=== PATIENT | male | born 1945 | race Caucasian/White ===

== ENCOUNTER 2017-08-08 23:23 | Inpatient (IN) ==
[2017-08-08] MEDS ORDERED: ALBUTEROL 2.5 MG/3 ML NEB RESP TX STA (23:50)
[2017-08-08] MEDS ORDERED: FUROSEMIDE 40 MG/4 ML VIAL IV STA (23:50)
[2017-08-08] MEDS ORDERED: methylPREDNISolone SOD SUC 125 MG/2 ML VIAL IV ONE (23:50)
[2017-08-09 00:07] LABS: Basophils # 0.1 10*3/uL (0.0-0.2); Basophils % 0.5 % (0.0-0.8); Eosinophils # 0.1 10*3/uL (0.0-0.87); Eosinophils % 0.3 % (0.00-10.9); Hematocrit 36.2 VOL% (42.0-52.0); Hemoglobin 12.5 GM/DL (14.0-18.0); Lymphocytes # 1.6 10*3/uL (1.4-4.0); Lymphocytes % 10.7 % (21.2-54.2); Mean Corpuscular HGB Conc 34.5 GM/DL (32-36); Mean Corpuscular Hemoglobin 29 PG (27-34); Mean Corpuscular Volume 83.2 FL (87-102); Mean Platelet Volume 9.9 FL (9.6-12.0); Monocytes # 1.2 10*3/uL (0.11-0.8); Monocytes % 8.2 % (1.7-12.7); Neutrophils # 11.5 10*3/uL (1.4-7.4); Neutrophils % 76.3 % (38.7-73.9); Platelet Count 300 T/CUMM (130-400); Red Blood Count 4.35 MC/CUMM (3.8-5.5); Red Cell Distribution Width 14.5 % (9.3-17.3); White Blood Count 15.1 T/CUMM (4-12)
[2017-08-09 00:22] LABS: Calcium 8.7 MG/DL (8.5-10.1); Osmolality,Calculated 258.6 MOS/KG (273-304); Potassium 4.2 MMOL/L (3.5-5.1)
[2017-08-09 00:27] LABS: Lactic Acid 2.7 MMOL/L (0.4-2.0)
[2017-08-09 01:40] LABS: Band Neutrophils 1 % (0-10); Eosinophils 1 % (0-10); Lymphocytes 10 % (20-55); Segmented Neutrophils 82 % (50-85)
[2017-08-09 01:41] LABS: Platelet Estimate Normal; Polychromasia Few
[2017-08-09 01:42] LABS: Ovalocytes 1+; Total Cells Counted 100
[2017-08-09] MEDS ORDERED: ONDANSETRON 4 MG/2 ML VIAL IV PRN (01:57)
[2017-08-09] MEDS ORDERED: ACETAMINOPHEN 325 MG TABLET PO PRN (01:57)
[2017-08-09] MEDS: cefTRIAXone 1,000 MG in SYRINGE 1 EACH IV SCH (03:35)
[2017-08-09] MEDS: AZITHROMYCIN INJ 500 MG in SODIUM CHLORIDE 0.9% 250 ML IV SCH (03:35)
[2017-08-09] MEDS ORDERED: NITROGLYCERIN SL 0.4 MG TABLET SL PRN (07:18)
[2017-08-09] MEDS ORDERED: MORPHINE 4 MG/1 ML VIAL IV PRN (07:18)
[2017-08-09 09:07] LABS: CKMB % 1.9 %; Troponin I Only 0.695 NG/ML (0.00-0.045)
[2017-08-09] MEDS: PANTOPRAZOLE 40 MG TABLET PO SCH (09:55)
[2017-08-09] MEDS: DOCUSATE SODIUM 100 MG CAPSULE PO SCH ×2 (09:55→21:33)
[2017-08-09] MEDS: ASPIRIN 325 MG TABLET PO SCH (09:55)
[2017-08-09] MEDS: FUROSEMIDE 40 MG/4 ML VIAL IV SCH ×2 (09:55→16:57)
[2017-08-09] MEDS: INSULIN LISPRO 100 UNIT/ML SUBCUT SCH ×2 (12:47→16:57)
[2017-08-09] MEDS: ALBUTEROL/IPRATROPIUM 3 ML NEB RESP TX PRN (15:15)
[2017-08-09] MEDS ORDERED: MAGNESIUM SULF RIDER 4 GM in PREMIX 1 EACH IV PRN (18:59)
[2017-08-09] MEDS: SODIUM CHLORIDE 0.9% 1,000 ML IV SCH (20:38)
[2017-08-09] MEDS: ENOXAPARIN 100 MG/ML SYRINGE SUBCUT SCH (20:50)
[2017-08-09] MEDS ORDERED: DEXTROSE 50% 25 GM/50 ML VIAL IV PRN (20:52)
[2017-08-09] MEDS ORDERED: GLUCAGON 1 MG VIAL IM PRN (20:52)
[2017-08-09] MEDS: MAGNESIUM SULF RIDER 2 GM in PREMIX 1 EACH IV PRN ×2 (20:55→22:21)
[2017-08-09] MEDS ORDERED: CARVEDILOL 3.125 MG TABLET PO SCH (21:00)
[2017-08-09] MEDS: ZALEPLON 5 MG CAPSULE PO SCH (21:33)
[2017-08-09] MEDS: INSULIN GLARGINE 100 UNIT/ML SUBCUT SCH (21:33)
[2017-08-09 23:19] LABS: Troponin I Only 3.89 NG/ML (0.00-0.045)
[2017-08-10] MEDS: INSULIN LISPRO 100 UNIT/ML SUBCUT SCH ×5 (00:36→23:36)
[2017-08-10] MEDS: cefTRIAXone 1,000 MG in SYRINGE 1 EACH IV SCH (03:27)
[2017-08-10] MEDS: AZITHROMYCIN INJ 500 MG in SODIUM CHLORIDE 0.9% 250 ML IV SCH (03:27)
[2017-08-10 04:40] LABS: Basophils % 0.1 % (0.0-0.8); Eosinophils % 0.1 % (0.00-10.9); Hematocrit 27.3 VOL% (42.0-52.0); Hemoglobin 9.3 GM/DL (14.0-18.0); Immature Granulocytes % 1.6 %; Immature Granulocytes Absolute 0.21 #; Lymphocytes # 0.9 10*3/uL (1.4-4.0); Lymphocytes % 6.5 % (21.2-54.2); Mean Corpuscular HGB Conc 34.1 GM/DL (32-36); Mean Corpuscular Hemoglobin 29 PG (27-34); Mean Corpuscular Volume 85.3 FL (87-102); Mean Platelet Volume 9.6 FL (9.6-12.0); Monocytes # 1.2 10*3/uL (0.11-0.8); Neutrophils # 10.9 10*3/uL (1.4-7.4); Neutrophils % 82.7 % (38.7-73.9); Platelet Count 207 T/CUMM (130-400); Red Cell Distribution Width 14.9 % (9.3-17.3); White Blood Count 13.2 T/CUMM (4-12)
[2017-08-10 05:07] LABS: Osmolality,Calculated 273.1 MOS/KG (273-304); Potassium 3.5 MMOL/L (3.5-5.1)
[2017-08-10 05:11] LABS: CKMB % 5.4 %
[2017-08-10 05:13] LABS: Troponin I Only 6.28 NG/ML (0.00-0.045)
[2017-08-10] MEDS: ENOXAPARIN 100 MG/ML SYRINGE SUBCUT SCH ×2 (06:35→21:04)
[2017-08-10 07:26] LABS: CKMB % 4.9 %
[2017-08-10 07:28] LABS: Troponin I Only 8.64 NG/ML (0.00-0.045)
[2017-08-10] MEDS: sitaGLIPtin 100 MG TABLET PO SCH (08:53)
[2017-08-10] MEDS: ASPIRIN 325 MG TABLET PO SCH (08:53)
[2017-08-10] MEDS: DOCUSATE SODIUM 100 MG CAPSULE PO SCH ×2 (08:53→21:04)
[2017-08-10] MEDS: VALSARTAN 80 MG TABLET PO SCH (08:53)
[2017-08-10] MEDS: ATORVASTATIN 20 MG TABLET PO SCH (08:54)
[2017-08-10] MEDS: FUROSEMIDE 40 MG/4 ML VIAL IV SCH ×2 (08:54→21:05)
[2017-08-10] MEDS: glipiZIDE 5 MG TABLET PO SCH (08:54)
[2017-08-10] MEDS: PANTOPRAZOLE 40 MG TABLET PO SCH (08:54)
[2017-08-10] MEDS: SPIRONOLACTONE 25 MG TABLET PO SCH (08:54)
[2017-08-10] MEDS: SODIUM CHLORIDE 0.9% 1,000 ML IV SCH (08:55)
[2017-08-10] MEDS: CLOPIDOGREL 75 MG TABLET PO SCH (08:58)
[2017-08-10] MEDS: MULTIVITAMIN (CENTRUM) TABLET PO SCH (08:58)
[2017-08-10] MEDS ORDERED: FLAXSEED OIL 1000 MG PO SCH (09:00)
[2017-08-10] MEDS ORDERED: QUINAPRIL 5 MG TABLET PO SCH (09:00)
[2017-08-10] MEDS ORDERED: amLODIPine 10 MG TABLET PO SCH (09:00)
[2017-08-10] MEDS ORDERED: METOPROLOL SUCCINATE XL 50 MG TABLET PO SCH (09:30)
[2017-08-10 12:01] LABS: CKMB % 4.1 %
[2017-08-10 12:02] LABS: Troponin I Only 6.49 NG/ML (0.00-0.045)
[2017-08-10] MEDS ORDERED: POTASSIUM CHLORIDE 20 MEQ TABLET PO ONE (14:44)
[2017-08-10 15:06] LABS: Basophils % 0.2 % (0.0-0.8); Eosinophils # 0.1 10*3/uL (0.0-0.87); Eosinophils % 0.3 % (0.00-10.9); Hematocrit 35.7 VOL% (42.0-52.0); Immature Granulocytes % 1.6 %; Immature Granulocytes Absolute 0.28 #; Lymphocytes # 1.2 10*3/uL (1.4-4.0); Lymphocytes % 6.8 % (21.2-54.2); Mean Corpuscular HGB Conc 33.6 GM/DL (32-36); Mean Corpuscular Hemoglobin 29 PG (27-34); Mean Platelet Volume 9.8 FL (9.6-12.0); Monocytes # 1.5 10*3/uL (0.11-0.8); Monocytes % 8.6 % (1.7-12.7); Neutrophils # 14.4 10*3/uL (1.4-7.4); Neutrophils % 82.5 % (38.7-73.9); Platelet Count 305 T/CUMM (130-400); Red Cell Distribution Width 15.2 % (9.3-17.3); White Blood Count 17.5 T/CUMM (4-12)
[2017-08-10] MEDS: ALBUTEROL/IPRATROPIUM 3 ML NEB RESP TX PRN (15:11)
[2017-08-10 15:39] LABS: % Iron Saturation 9.7 % (18-50); Ferritin 91.9 ng/ml (26-388)
[2017-08-10 15:47] LABS: Folate 21.9 NG/ML (5.4-24.0)
[2017-08-10] MEDS: ALBUTEROL/IPRATROPIUM 3 ML NEB RESP TX SCH ×2 (17:08→19:16)
[2017-08-10] MEDS ORDERED: FUROSEMIDE 100 MG/10 ML VIAL ONE (20:55)
[2017-08-10] MEDS ORDERED: POTASSIUM CHLORIDE 20 MEQ TABLET PO SCH (21:00)
[2017-08-10] MEDS: INSULIN GLARGINE 100 UNIT/ML SUBCUT SCH (21:02)
[2017-08-10] MEDS: METOPROLOL TARTRATE 50 MG TABLET PO SCH (21:04)
[2017-08-10] MEDS: ZALEPLON 5 MG CAPSULE PO SCH (21:04)
[2017-08-11] MEDS: ALBUTEROL/IPRATROPIUM 3 ML NEB RESP TX SCH ×4 (00:03→19:23)
[2017-08-11] MEDS: cefTRIAXone 1,000 MG in SYRINGE 1 EACH IV SCH (04:00)
[2017-08-11 04:50] LABS: Basophils % 0.1 % (0.0-0.8); Eosinophils # 0.3 10*3/uL (0.0-0.87); Eosinophils % 2.3 % (0.00-10.9); Hematocrit 32.7 VOL% (42.0-52.0); Hemoglobin 11.1 GM/DL (14.0-18.0); Immature Granulocytes % 1.5 %; Immature Granulocytes Absolute 0.21 #; Lymphocytes # 1.2 10*3/uL (1.4-4.0); Lymphocytes % 8.8 % (21.2-54.2); Mean Corpuscular HGB Conc 33.9 GM/DL (32-36); Mean Corpuscular Hemoglobin 29 PG (27-34); Mean Corpuscular Volume 85.4 FL (87-102); Mean Platelet Volume 9.7 FL (9.6-12.0); Monocytes # 1.5 10*3/uL (0.11-0.8); Monocytes % 10.7 % (1.7-12.7); Neutrophils # 10.6 10*3/uL (1.4-7.4); Neutrophils % 76.6 % (38.7-73.9); Platelet Count 259 T/CUMM (130-400); Red Blood Count 3.83 MC/CUMM (3.8-5.5); Red Cell Distribution Width 15.3 % (9.3-17.3); White Blood Count 13.9 T/CUMM (4-12)
[2017-08-11 05:17] LABS: Calcium 8.3 MG/DL (8.5-10.1); Osmolality,Calculated 272.2 MOS/KG (273-304); Potassium 4.8 MMOL/L (3.5-5.1)
[2017-08-11] MEDS: INSULIN LISPRO 100 UNIT/ML SUBCUT SCH ×3 (05:22→18:39)
[2017-08-11] MEDS ORDERED: FUROSEMIDE 20 MG/2 ML VIAL ONE (08:11)
[2017-08-11] MEDS: FUROSEMIDE 40 MG/4 ML VIAL IV SCH ×2 (08:19→15:50)
[2017-08-11] MEDS ORDERED: MAGNESIUM SULF RIDER 2 GM in PREMIX 1 EACH IV PRN (08:19)
[2017-08-11] MEDS ORDERED: POTASSIUM CHLORIDE RIDER 10 MEQ in PREMIX 1 EACH IV PRN (08:19)
[2017-08-11] MEDS: VALSARTAN 80 MG TABLET PO SCH (08:20)
[2017-08-11] MEDS: SPIRONOLACTONE 25 MG TABLET PO SCH (08:21)
[2017-08-11] MEDS: ATORVASTATIN 20 MG TABLET PO SCH (08:21)
[2017-08-11] MEDS: METOPROLOL TARTRATE 50 MG TABLET PO SCH ×2 (08:21→21:34)
[2017-08-11] MEDS: ENOXAPARIN 40 MG/0.4 ML SYRINGE SUBCUT SCH (08:21)
[2017-08-11] MEDS: ASPIRIN 325 MG TABLET PO SCH (08:21)
[2017-08-11] MEDS: PANTOPRAZOLE 40 MG TABLET PO SCH (08:21)
[2017-08-11] MEDS: MULTIVITAMIN (CENTRUM) TABLET PO SCH (08:21)
[2017-08-11] MEDS: glipiZIDE 5 MG TABLET PO SCH (08:21)
[2017-08-11] MEDS: sitaGLIPtin 100 MG TABLET PO SCH (08:21)
[2017-08-11] MEDS: CLOPIDOGREL 75 MG TABLET PO SCH (08:21)
[2017-08-11] MEDS: DOCUSATE SODIUM 100 MG CAPSULE PO SCH ×2 (08:21→21:34)
[2017-08-11] MEDS ORDERED: CYANOCOBALAMIN 1000 MCG/1 ML VIAL IM SCH (09:00)
[2017-08-11] MEDS: ZALEPLON 5 MG CAPSULE PO SCH (21:35)
[2017-08-11] MEDS: INSULIN GLARGINE 100 UNIT/ML SUBCUT SCH (21:35)
[2017-08-12] MEDS: INSULIN LISPRO 100 UNIT/ML SUBCUT SCH ×4 (00:06→18:57)
[2017-08-12] MEDS: ALBUTEROL/IPRATROPIUM 3 ML NEB RESP TX SCH ×4 (02:03→19:21)
[2017-08-12] MEDS: cefTRIAXone 1,000 MG in SYRINGE 1 EACH IV SCH (03:51)
[2017-08-12 05:15] LABS: Basophils % 0.2 % (0.0-0.8); Eosinophils # 0.4 10*3/uL (0.0-0.87); Eosinophils % 3.6 % (0.00-10.9); Hematocrit 32.4 VOL% (42.0-52.0); Immature Granulocytes % 1.2 %; Immature Granulocytes Absolute 0.14 #; Lymphocytes % 8.5 % (21.2-54.2); Mean Corpuscular Hemoglobin 29 PG (27-34); Mean Platelet Volume 9.8 FL (9.6-12.0); Monocytes # 1.3 10*3/uL (0.11-0.8); Monocytes % 10.8 % (1.7-12.7); NRBC # 0.02 10*3/uL; Neutrophils % 75.7 % (38.7-73.9); Platelet Count 261 T/CUMM (130-400); Red Blood Count 3.81 MC/CUMM (3.8-5.5); Red Cell Distribution Width 15.3 % (9.3-17.3); White Blood Count 11.8 T/CUMM (4-12)
[2017-08-12 05:23] LABS: PT Patient Result 10.6 SECS
[2017-08-12 05:52] LABS: Calcium 8.2 MG/DL (8.5-10.1); Potassium 4.2 MMOL/L (3.5-5.1)
[2017-08-12] MEDS ORDERED: HEPARIN/NACL 0.9% 2 UNITS/ML 1,000 ML IV ONE (06:53)
[2017-08-12] MEDS: VALSARTAN 80 MG TABLET PO SCH (07:40)
[2017-08-12] MEDS: ASPIRIN 325 MG TABLET PO SCH (07:40)
[2017-08-12] MEDS: METOPROLOL TARTRATE 50 MG TABLET PO SCH ×2 (07:40→21:22)
[2017-08-12] MEDS: CLOPIDOGREL 75 MG TABLET PO SCH (07:40)
[2017-08-12] MEDS: FUROSEMIDE 40 MG/4 ML VIAL IV SCH ×3 (07:43→16:03)
[2017-08-12] MEDS ORDERED: LIDOCAINE 1%/EPI INJ 20 ML VIAL ONE (07:58)
[2017-08-12] MEDS: DOCUSATE SODIUM 100 MG CAPSULE PO SCH ×3 (08:02→21:21)
[2017-08-12] MEDS: glipiZIDE 5 MG TABLET PO SCH ×2 (08:02→09:34)
[2017-08-12] MEDS: ATORVASTATIN 20 MG TABLET PO SCH ×2 (08:02→09:34)
[2017-08-12] MEDS: sitaGLIPtin 100 MG TABLET PO SCH ×2 (08:02→09:34)
[2017-08-12] MEDS: MULTIVITAMIN (CENTRUM) TABLET PO SCH ×2 (08:02→09:34)
[2017-08-12] MEDS: SPIRONOLACTONE 25 MG TABLET PO SCH ×2 (08:02→09:34)
[2017-08-12] MEDS: PANTOPRAZOLE 40 MG TABLET PO SCH ×2 (08:03→09:34)
[2017-08-12] MEDS ORDERED: MIDAZOLAM 2 MG/2 ML VIAL ONE (08:14)
[2017-08-12] MEDS ORDERED: fentaNYL 100 MCG/2 ML VIAL ONE (08:14)
[2017-08-12] MEDS ORDERED: DIAZEPAM 5 MG TABLET PO ONE (08:19)
[2017-08-12] MEDS ORDERED: diphenhydrAMINE CAP 25 MG CAPSULE PO ONE (08:19)
[2017-08-12] MEDS ORDERED: SODIUM CHLORIDE 0.9% 1,000 ML IV SCH (09:00)
[2017-08-12] MEDS: ENOXAPARIN 40 MG/0.4 ML SYRINGE SUBCUT SCH (09:42)
[2017-08-12] MEDS ORDERED: MAGNESIUM SULF RIDER 4 GM in PREMIX 1 EACH IV PRN (11:12)
[2017-08-12] MEDS ORDERED: MAGNESIUM SULF RIDER 2 GM in PREMIX 1 EACH IV PRN (11:12)
[2017-08-12] MEDS: ZALEPLON 5 MG CAPSULE PO SCH (21:21)
[2017-08-12] MEDS: INSULIN GLARGINE 100 UNIT/ML SUBCUT SCH (21:22)
[2017-08-13] MEDS: INSULIN LISPRO 100 UNIT/ML SUBCUT SCH ×5 (00:01→20:11)
[2017-08-13] MEDS: ALBUTEROL/IPRATROPIUM 3 ML NEB RESP TX SCH ×4 (00:04→19:06)
[2017-08-13] MEDS: cefTRIAXone 1,000 MG in SYRINGE 1 EACH IV SCH (03:08)
[2017-08-13 06:45] LABS: Basophils % 0.2 % (0.0-0.8); Eosinophils # 0.5 10*3/uL (0.0-0.87); Eosinophils % 3.9 % (0.00-10.9); Hematocrit 34.9 VOL% (42.0-52.0); Hemoglobin 11.6 GM/DL (14.0-18.0); Immature Granulocytes % 1.1 %; Immature Granulocytes Absolute 0.15 #; Lymphocytes # 1.2 10*3/uL (1.4-4.0); Lymphocytes % 8.9 % (21.2-54.2); Mean Corpuscular HGB Conc 33.2 GM/DL (32-36); Mean Corpuscular Hemoglobin 29 PG (27-34); Mean Corpuscular Volume 86.8 FL (87-102); Mean Platelet Volume 9.7 FL (9.6-12.0); Monocytes # 1.2 10*3/uL (0.11-0.8); Monocytes % 8.4 % (1.7-12.7); Neutrophils # 10.6 10*3/uL (1.4-7.4); Neutrophils % 77.5 % (38.7-73.9); Platelet Count 272 T/CUMM (130-400); Red Blood Count 4.02 MC/CUMM (3.8-5.5); Red Cell Distribution Width 14.9 % (9.3-17.3); White Blood Count 13.7 T/CUMM (4-12)
[2017-08-13 07:19] LABS: Calcium 8.4 MG/DL (8.5-10.1); Osmolality,Calculated 275.1 MOS/KG (273-304); Potassium 4.5 MMOL/L (3.5-5.1); Risk Ratio 2.22; VLDL CHOLESTEROL 8.2 MG/DL
[2017-08-13] MEDS: DOCUSATE SODIUM 100 MG CAPSULE PO SCH ×2 (09:04→20:11)
[2017-08-13] MEDS: ASPIRIN 325 MG TABLET PO SCH (09:04)
[2017-08-13] MEDS: sitaGLIPtin 100 MG TABLET PO SCH (09:04)
[2017-08-13] MEDS: ATORVASTATIN 20 MG TABLET PO SCH (09:04)
[2017-08-13] MEDS: METOPROLOL TARTRATE 50 MG TABLET PO SCH ×2 (09:04→20:11)
[2017-08-13] MEDS: ISOSORBIDE MONONITRATE 30 MG TABLET PO SCH (09:05)
[2017-08-13] MEDS: FUROSEMIDE 40 MG/4 ML VIAL IV SCH ×2 (09:05→18:10)
[2017-08-13] MEDS: ENOXAPARIN 40 MG/0.4 ML SYRINGE SUBCUT SCH (09:05)
[2017-08-13] MEDS: PANTOPRAZOLE 40 MG TABLET PO SCH (09:05)
[2017-08-13] MEDS: SPIRONOLACTONE 25 MG TABLET PO SCH (09:05)
[2017-08-13] MEDS: glipiZIDE 5 MG TABLET PO SCH (09:05)
[2017-08-13] MEDS: MULTIVITAMIN (CENTRUM) TABLET PO SCH (09:05)
[2017-08-13] MEDS: VALSARTAN 80 MG TABLET PO SCH ×2 (09:12→20:11)
[2017-08-13] MEDS ORDERED: GLUCAGON 1 MG VIAL IM PRN (12:41)
[2017-08-13] MEDS ORDERED: DEXTROSE 50% 25 GM/50 ML VIAL IV PRN (12:41)
[2017-08-13] MEDS ORDERED: SODIUM CHLORIDE 0.9% 1,000 ML IV SCH (13:00)
[2017-08-13] MEDS: ZALEPLON 5 MG CAPSULE PO SCH (20:11)
[2017-08-13] MEDS: INSULIN GLARGINE 100 UNIT/ML SUBCUT SCH (20:12)
[2017-08-13] MEDS: CHLORHEXIDINE 0.12% ORAL RINSE 60 ML BOTTLE SWISH/SPIT SCH (20:19)
[2017-08-14] MEDS: ALBUTEROL/IPRATROPIUM 3 ML NEB RESP TX SCH ×4 (01:55→20:07)
[2017-08-14] MEDS: cefTRIAXone 1,000 MG in SYRINGE 1 EACH IV SCH (02:11)
[2017-08-14 03:28] LABS: ABG Base Excess 7.2 MMOL/L (-2.5-2.5); ABG HCO3 31.4 MMOL/L (20-26); ABG Oxygen Saturation 95.1 % (95-100); ABG PH 7.481 (7.35-7.45); ABG PO2 79.9 MM HG (80-95); ABG TCO2 32.7 MMOL/L (23-27); Allen Test Positive
[2017-08-14 05:53] LABS: Basophils % 0.2 % (0.0-0.8); Eosinophils # 0.4 10*3/uL (0.0-0.87); Eosinophils % 3.4 % (0.00-10.9); Hematocrit 32.2 VOL% (42.0-52.0); Immature Granulocytes % 0.9 %; Immature Granulocytes Absolute 0.11 #; Lymphocytes # 1.1 10*3/uL (1.4-4.0); Lymphocytes % 9.2 % (21.2-54.2); Mean Corpuscular HGB Conc 34.2 GM/DL (32-36); Mean Corpuscular Hemoglobin 29 PG (27-34); Mean Corpuscular Volume 84.5 FL (87-102); Mean Platelet Volume 9.6 FL (9.6-12.0); Monocytes % 8.5 % (1.7-12.7); Neutrophils # 9.5 10*3/uL (1.4-7.4); Neutrophils % 77.8 % (38.7-73.9); Platelet Count 245 T/CUMM (130-400); Red Blood Count 3.81 MC/CUMM (3.8-5.5); Red Cell Distribution Width 14.7 % (9.3-17.3); White Blood Count 12.2 T/CUMM (4-12)
[2017-08-14 06:27] LABS: Calcium 8.6 MG/DL (8.5-10.1); Osmolality,Calculated 271.4 MOS/KG (273-304)
[2017-08-14] MEDS ORDERED: CEFUROXIME INJ 1,500 MG in SODIUM CHLORIDE 0.9% 100 ML IV ONE (06:30)
[2017-08-14] MEDS: MAGNESIUM SULF RIDER 2 GM in PREMIX 1 EACH IV PRN (06:33)
[2017-08-14 06:56] LABS: Albumin 2.7 G/DL (3.4-5.0); Bilirubin,Total 1.8 MG/DL (0.2-1.0); Calcium 8.7 MG/DL (8.5-10.1); Osmolality,Calculated 272.4 MOS/KG (273-304); Total Protein 5.7 G/DL (6.4-8.3)
[2017-08-14] MEDS: INSULIN LISPRO 100 UNIT/ML SUBCUT SCH ×4 (07:39→21:37)
[2017-08-14] MEDS: FUROSEMIDE 40 MG/4 ML VIAL IV SCH ×2 (08:21→16:21)
[2017-08-14] MEDS: DOCUSATE SODIUM 100 MG CAPSULE PO SCH ×2 (09:44→21:37)
[2017-08-14] MEDS: sitaGLIPtin 100 MG TABLET PO SCH (09:44)
[2017-08-14] MEDS: SPIRONOLACTONE 25 MG TABLET PO SCH (09:44)
[2017-08-14] MEDS: MULTIVITAMIN (CENTRUM) TABLET PO SCH (09:44)
[2017-08-14] MEDS: ATORVASTATIN 20 MG TABLET PO SCH (09:44)
[2017-08-14] MEDS: PANTOPRAZOLE 40 MG TABLET PO SCH (09:45)
[2017-08-14] MEDS: METOPROLOL TARTRATE 50 MG TABLET PO SCH ×2 (09:45→21:37)
[2017-08-14] MEDS: ISOSORBIDE MONONITRATE 30 MG TABLET PO SCH (09:45)
[2017-08-14] MEDS: ASPIRIN 325 MG TABLET PO SCH (09:45)
[2017-08-14] MEDS: VALSARTAN 80 MG TABLET PO SCH ×2 (09:45→21:37)
[2017-08-14] MEDS: glipiZIDE 5 MG TABLET PO SCH (09:45)
[2017-08-14] MEDS: CHLORHEXIDINE 0.12% ORAL RINSE 60 ML BOTTLE SWISH/SPIT SCH ×2 (09:46→21:38)
[2017-08-14] MEDS: ENOXAPARIN 40 MG/0.4 ML SYRINGE SUBCUT SCH (09:50)
[2017-08-14] MEDS: CHLORHEXIDINE 4% SOLN 118 ML BOTTLE TOP SCH ×2 (15:25→21:38)
[2017-08-14] MEDS: ZALEPLON 5 MG CAPSULE PO SCH (21:37)
[2017-08-14] MEDS: INSULIN GLARGINE 100 UNIT/ML SUBCUT SCH (21:38)
[2017-08-15] MEDS: ALBUTEROL/IPRATROPIUM 3 ML NEB RESP TX SCH ×3 (00:43→13:59)
[2017-08-15] MEDS: cefTRIAXone 1,000 MG in SYRINGE 1 EACH IV SCH (03:44)
[2017-08-15] MEDS ORDERED: PAPAVERINE 60 MG/2 ML VIAL ONE (05:19)
[2017-08-15] MEDS ORDERED: VANCOMYCIN 1,000 MG VIAL ONE (05:19)
[2017-08-15] MEDS ORDERED: DIAZEPAM 5 MG TABLET PO ONE (05:30)
[2017-08-15] MEDS ORDERED: FAMOTIDINE 20 MG TABLET PO ONE (05:30)
[2017-08-15 05:42] LABS: Basophils % 0.2 % (0.0-0.8); Eosinophils # 0.5 10*3/uL (0.0-0.87); Eosinophils % 4.3 % (0.00-10.9); Hematocrit 31.8 VOL% (42.0-52.0); Hemoglobin 10.2 GM/DL (14.0-18.0); Immature Granulocytes % 0.9 %; Lymphocytes % 9.6 % (21.2-54.2); Mean Corpuscular HGB Conc 32.1 GM/DL (32-36); Mean Corpuscular Hemoglobin 28 PG (27-34); Mean Corpuscular Volume 87.4 FL (87-102); Mean Platelet Volume 9.9 FL (9.6-12.0); Monocytes % 9.1 % (1.7-12.7); Neutrophils # 8.2 10*3/uL (1.4-7.4); Neutrophils % 75.9 % (38.7-73.9); Platelet Count 246 T/CUMM (130-400); Red Blood Count 3.64 MC/CUMM (3.8-5.5); Red Cell Distribution Width 14.6 % (9.3-17.3); White Blood Count 10.9 T/CUMM (4-12)
[2017-08-15] MEDS ORDERED: SUFentanil 250 MCG/5 ML AMP ONE (08:56)
[2017-08-15] MEDS ORDERED: TRANEXAMIC ACID 1,000 MG/10 ML VIAL ONE ×2 (08:57→15:53)
[2017-08-15] MEDS ORDERED: MIDAZOLAM 10 MG/2 ML VIAL ONE (08:57)
[2017-08-15] MEDS ORDERED: VECURONIUM 10 MG VIAL IV ONE (09:06)
[2017-08-15] MEDS ORDERED: CALCIUM CHLORIDE 1,000 MG/10 ML VIAL IV ONE ×2 (09:06→15:53)
[2017-08-15] MEDS: INSULIN LISPRO 100 UNIT/ML SUBCUT SCH ×2 (09:10→13:59)
[2017-08-15] MEDS: glipiZIDE 5 MG TABLET PO SCH (09:11)
[2017-08-15] MEDS: CHLORHEXIDINE 4% SOLN 118 ML BOTTLE TOP SCH (09:11)
[2017-08-15] MEDS: SPIRONOLACTONE 25 MG TABLET PO SCH (09:12)
[2017-08-15] MEDS: ENOXAPARIN 40 MG/0.4 ML SYRINGE SUBCUT SCH (09:12)
[2017-08-15] MEDS: sitaGLIPtin 100 MG TABLET PO SCH (09:12)
[2017-08-15] MEDS: FUROSEMIDE 40 MG/4 ML VIAL IV SCH (09:13)
[2017-08-15] MEDS: ASPIRIN 325 MG TABLET PO SCH (09:27)
[2017-08-15] MEDS: VALSARTAN 80 MG TABLET PO SCH (09:27)
[2017-08-15] MEDS: METOPROLOL TARTRATE 50 MG TABLET PO SCH (09:27)
[2017-08-15] MEDS: DOCUSATE SODIUM 100 MG CAPSULE PO SCH (09:28)
[2017-08-15] MEDS: PANTOPRAZOLE 40 MG TABLET PO SCH (09:28)
[2017-08-15] MEDS: MULTIVITAMIN (CENTRUM) TABLET PO SCH (09:28)
[2017-08-15] MEDS: ATORVASTATIN 20 MG TABLET PO SCH (09:28)
[2017-08-15] MEDS: ISOSORBIDE MONONITRATE 30 MG TABLET PO SCH (09:28)
[2017-08-15] MEDS: CHLORHEXIDINE 0.12% ORAL RINSE 60 ML BOTTLE SWISH/SPIT SCH ×2 (09:31→21:13)
[2017-08-15] MEDS ORDERED: SODIUM CHLORIDE 0.9% 1,000 ML IV SCH (10:30)
[2017-08-15] MEDS ORDERED: NITROPRUSSIDE 50 MG/2 ML VIAL ONE (11:08)
[2017-08-15] MEDS ORDERED: PHENYLEPHRINE DRIP 40 MG/250 ML PREMIX IV ONE (11:08)
[2017-08-15] MEDS ORDERED: ALBUMIN 5% 12.5 GM/250 ML VIAL IV ONE ×3 (11:09→15:53)
[2017-08-15] MEDS ORDERED: CALCIUM CHLORIDE 1,000 MG/10 ML SYRINGE IV ONE (11:09)
[2017-08-15] MEDS ORDERED: SODIUM BICARBONATE 50 MEQ/50 ML SYRINGE IV ONE ×2 (11:09→14:15)
[2017-08-15] MEDS ORDERED: POTASSIUM CHLORIDE RIDER 100 ML IV ONE (11:10)
[2017-08-15] MEDS ORDERED: CEFUROXIME 1,500 MG VIAL ONE (11:29)
[2017-08-15 11:34] LABS: ABG Base Excess 4.4 MMOL/L (-2.5-2.5); ABG HCO3 28.5 MMOL/L (20-26); ABG Oxygen Saturation 99.3 % (95-100); ABG PCO2 40.4 MM HG (35-48); ABG PH 7.466 (7.35-7.45); ABG PO2 465.7 MM HG (80-95); ABG TCO2 29.7 MMOL/L (23-27); Glucose Heart Surgery 128 MG/DL (74-106); Hemoglobin Heart Surgery 10.4 G/DL (14.0-18.0); PCO2 Patient Temp Arterial 40.4 MMHG; PH Patient Temp Arterial 7.466; PO2 Patient Temp Arterial 465.7 MM HG; Patient Temperature 37 CELCIUS; Potassium Heart/CVR 3.4 MMOL/L (3.5-5.1); Sodium Heart/CVR 129 MMOL/L (135-145)
[2017-08-15 12:44] LABS: Apearance,Urine CLEAR (Clear); Bilirubin,Urine Negative (Negative); Blood, Urine Negative (Negative); Glucose,Urine (UA) Negative (Negative); Ketones,Urine 20 mg/dL (Negative); Mucus,Urine Occasional /LPF (Occasional); Nitrite,Urine Negative (Negative); Protein,Urine Negative; Urine Color Yellow (Yellow); Urine Specific Gravity 1.018 (1.001-1.035); Urine Urobilinogen < 2.0 EU/DL (0.2-1.0); WBC,Urine 1 /HPF (0-6)
[2017-08-15 12:56] LABS: Hemoglobin Heart Surgery 6.6 G/DL (14.0-18.0); PCO2 Patient Temp Venous 28.1 MM HG; PH Patient Temp Venous 7.593; PO2 Patient Temp Venous 43.1 MM HG; Potassium Heart/CVR 4.1 MMOL/L (3.5-5.1); VBG Base Excess 4.4 MEQ/L (0-4); VBG HCO3 27.1 MEQ/L (24-28); VBG Oxygen Saturation 87.7 %; VBG PH 7.546; VBG PO2 53.1 MMHG (17-40)
[2017-08-15 13:21] LABS: Hematocrit Heart Surgery 23.6 PERCENT (42-52); Hemoglobin Heart Surgery 7.6 G/DL (14.0-18.0); PCO2 Patient Temp Venous 30.3 MM HG; PH Patient Temp Venous 7.538; PO2 Patient Temp Venous 31.9 MM HG; Potassium Heart/CVR 4.2 MMOL/L (3.5-5.1); VBG Base Excess 3.5 MEQ/L (0-4); VBG HCO3 27.3 MEQ/L (24-28); VBG PH 7.493; VBG PO2 39.4 MMHG (17-40)
[2017-08-15] MEDS ORDERED: FAMOTIDINE 20 MG/2 ML VIAL IV ONE (13:25)
[2017-08-15] MEDS ORDERED: HEPARIN 10,000 UNIT/10 ML VIAL ONE (14:15)
[2017-08-15] MEDS ORDERED: MAGNESIUM SULFATE 1 GM/2 ML VIAL ONE (14:15)
[2017-08-15] MEDS ORDERED: ALBUMIN 25% 25 GM/100 ML VIAL IV ONE (14:15)
[2017-08-15] MEDS ORDERED: DEXTROSE 5% KCL 20 MEQ 20 MEQ/1,000 ML BAG IV ONE (14:15)
[2017-08-15] MEDS ORDERED: methylPREDNISolone SOD SUC 1,000 MG/8 ML VIAL ONE (14:15)
[2017-08-15] MEDS ORDERED: PROTAMINE SULFATE 250 MG/25 ML VIAL IV ONE (14:15)
[2017-08-15] MEDS ORDERED: FUROSEMIDE 20 MG/2 ML VIAL ONE (14:16)
[2017-08-15] MEDS ORDERED: MANNITOL 12.5 GM/50 ML VIAL IV ONE (14:16)
[2017-08-15] MEDS ORDERED: PROTAMINE SULFATE 50 MG/5 ML VIAL IV ONE ×2 (14:16→16:06)
[2017-08-15 14:32] LABS: ABG Base Excess 0.2 MMOL/L (-2.5-2.5); ABG HCO3 24.7 MMOL/L (20-26); ABG PCO2 35.4 MM HG (35-48); ABG PH 7.441 (7.35-7.45); ABG TCO2 22.1 MMOL/L (23-27); Ionized Calcium Arterial 1.28 MMOL/L (1.21-1.46)
[2017-08-15 14:33] LABS: Glucose Heart Surgery 245 MG/DL (74-106); Hematocrit Heart Surgery 28.2 PERCENT (42-52); Hemoglobin Heart Surgery 9.1 G/DL (14.0-18.0); PCO2 Patient Temp Arterial 35.4 MMHG; PH Patient Temp Arterial 7.441; Patient Temperature 37 CELCIUS; Potassium Heart/CVR 3.8 MMOL/L (3.5-5.1); Sodium Heart/CVR 132 MMOL/L (135-145)
[2017-08-15] MEDS ORDERED: THROMBIN TOPICAL (RECOMBINANT) 5,000 UNIT VIAL TOP ONE (15:02)
[2017-08-15 15:10] LABS: ABG Base Excess 0.7 MMOL/L (-2.5-2.5); ABG HCO3 25.1 MMOL/L (20-26); ABG PCO2 36.5 MM HG (35-48); ABG PH 7.437 (7.35-7.45); ABG TCO2 22.8 MMOL/L (23-27); Glucose Heart Surgery 229 MG/DL (74-106); Hematocrit Heart Surgery 26.4 PERCENT (42-52); Hemoglobin Heart Surgery 8.5 G/DL (14.0-18.0); Ionized Calcium Arterial 1.18 MMOL/L (1.21-1.46); PCO2 Patient Temp Arterial 36.5 MMHG; PH Patient Temp Arterial 7.437; Patient Temperature 37 CELCIUS; Potassium Heart/CVR 3.7 MMOL/L (3.5-5.1); Sodium Heart/CVR 134 MMOL/L (135-145)
[2017-08-15] MEDS ORDERED: DOBUTamine 500 MG/250 ML PREMIX IV ONE ×2 (15:22→15:53)
[2017-08-15] MEDS ORDERED: NITROPRUSSIDE 100 MG in DEXTROSE 5% 250 ML IV PRN (15:51)
[2017-08-15] MEDS ORDERED: ACETAMINOPHEN 650 MG SUPP RECTAL PRN (15:51)
[2017-08-15] MEDS ORDERED: MAGNESIUM SULF RIDER 4 GM in PREMIX 1 EACH IV PRN (15:51)
[2017-08-15] MEDS ORDERED: VECURONIUM 10 MG VIAL IV PRN ×2 (15:51)
[2017-08-15] MEDS ORDERED: MIDAZOLAM 10 MG/2 ML VIAL IV PRN (15:51)
[2017-08-15] MEDS ORDERED: INSULIN REGULAR 100 UNIT/ML IV ONE (15:51)
[2017-08-15] MEDS ORDERED: INSULIN REGULAR 100 UNIT/ML IV PRN (15:51)
[2017-08-15] MEDS ORDERED: CALCIUM CHLORIDE 1,000 MG/10 ML SYRINGE IV PRN (15:51)
[2017-08-15] MEDS ORDERED: LACTATED RINGERS 250 ML IV PRN (15:51)
[2017-08-15] MEDS ORDERED: MORPHINE 10 MG/1 ML VIAL IV PRN (15:51)
[2017-08-15] MEDS ORDERED: ONDANSETRON 4 MG/2 ML VIAL IV PRN (15:51)
[2017-08-15] MEDS ORDERED: DEXTROSE 50% 25 GM/50 ML VIAL IV PRN ×2 (15:51)
[2017-08-15] MEDS ORDERED: POTASSIUM CHLORIDE RIDER 10 MEQ in PREMIX 1 EACH IV PRN (15:51)
[2017-08-15] MEDS ORDERED: MAGNESIUM SULF RIDER 2 GM in PREMIX 1 EACH IV PRN (15:51)
[2017-08-15] MEDS ORDERED: MIDAZOLAM 2 MG/2 ML VIAL IV PRN (15:51)
[2017-08-15] MEDS ORDERED: EPINEPHrine 1 MG/ML VIAL ONE (15:53)
[2017-08-15] MEDS ORDERED: SODIUM CHLORIDE 0.9% 2,000 ML IV ONE (15:53)
[2017-08-15] MEDS ORDERED: LACTATED RINGERS 1,000 ML IV ONE (15:53)
[2017-08-15] MEDS ORDERED: PHENYLEPHRINE 10 MG/1 ML VIAL IV ONE (15:53)
[2017-08-15] MEDS ORDERED: SODIUM CHLORIDE 0.9% 750 ML IV ONE (15:54)
[2017-08-15] MEDS ORDERED: SEVOFLURANE 1 UNIT/15 MINUTE INH ONE (15:54)
[2017-08-15] MEDS ORDERED: INSULIN REGULAR DRIP 100 ML IV SCH (16:00)
[2017-08-15] MEDS ORDERED: SODIUM CHLORIDE 0.45% 1,000 ML IV SCH (16:00)
[2017-08-15] MEDS ORDERED: HEPARIN/NACL 0.9% 2 UNITS/ML 500 ML IV ONE (16:03)
[2017-08-15 16:21] LABS: ABG HCO3 26.5 MMOL/L (20-26); ABG Oxygen Saturation 98.5 % (95-100); ABG PCO2 40.8 MM HG (35-48); ABG TCO2 27.7 MMOL/L (23-27); Glucose Heart Surgery 212 MG/DL (74-106); Hemoglobin Heart Surgery 8.7 G/DL (14.0-18.0); Potassium Heart/CVR 3.5 MMOL/L (3.5-5.1)
[2017-08-15 16:23] LABS: Basophils % 0.1 % (0.0-0.8); Eosinophils % 0.2 % (0.00-10.9); Hematocrit 23.4 VOL% (42.0-52.0); Hemoglobin 8.2 GM/DL (14.0-18.0); Immature Granulocytes Absolute 0.32 #; Lymphocytes # 0.4 10*3/uL (1.4-4.0); Lymphocytes % 2.4 % (21.2-54.2); Mean Corpuscular Hemoglobin 30 PG (27-34); Mean Corpuscular Volume 84.8 FL (87-102); Mean Platelet Volume 9.6 FL (9.6-12.0); Monocytes % 5.9 % (1.7-12.7); Neutrophils # 14.3 10*3/uL (1.4-7.4); Neutrophils % 89.4 % (38.7-73.9); Platelet Count 172 T/CUMM (130-400); Red Blood Count 2.76 MC/CUMM (3.8-5.5); Red Cell Distribution Width 14.5 % (9.3-17.3); White Blood Count 16.1 T/CUMM (4-12)
[2017-08-15 16:33] LABS: INR 1.2; PT Patient Result 12.1 SECS; Partial Thromboplastin Time 34.6 SECS (0-40)
[2017-08-15 16:44] LABS: CKMB % 8.1 %
[2017-08-15 16:47] LABS: Troponin I Only 7.69 NG/ML (0.00-0.045)
[2017-08-15] MEDS: DOBUTamine 500 MG/250 ML PREMIX IV SCH (16:48)
[2017-08-15] MEDS: SODIUM CHLORIDE 0.45% 1,000 ML IV SCH (16:48)
[2017-08-15] MEDS: PHENYLEPHRINE DRIP 40 MG/250 ML PREMIX IV PRN (16:49)
[2017-08-15 16:50] LABS: Albumin 2.8 G/DL (3.4-5.0); Bilirubin,Total 1.8 MG/DL (0.2-1.0); Calcium 8.6 MG/DL (8.5-10.1); Potassium 3.8 MMOL/L (3.5-5.1); Total Protein 4.6 G/DL (6.4-8.3)
[2017-08-15] MEDS: POTASSIUM CHLORIDE RIDER 20 MEQ in PREMIX 1 EACH IV PRN ×3 (16:51→19:43)
[2017-08-15 16:59] LABS: Band Neutrophils 4 % (0-10); Lymphocytes 9 % (20-55); Metamyelocytes 1 %; Segmented Neutrophils 86 % (50-85); Total Cells Counted 100
[2017-08-15] MEDS ORDERED: PROPOFOL 200 MG/20 ML VIAL IV ONE (16:59)
[2017-08-15 17:01] LABS: Anisocytosis 1+
[2017-08-15 17:02] LABS: Platelet Estimate Normal
[2017-08-15] MEDS ORDERED: PROPOFOL 1,000 MG/100 ML BOTTLE IV ONE (17:11)
[2017-08-15] MEDS: KETOROLAC 30 MG/1 ML VIAL IV SCH ×2 (17:20→21:58)
[2017-08-15] MEDS: LACTATED RINGERS 1,000 ML IV PRN ×2 (17:36→17:48)
[2017-08-15 18:11] LABS: ABG HCO3 26.3 MMOL/L (20-26); ABG Oxygen Saturation 98.3 % (95-100); ABG PCO2 44.7 MM HG (35-48); ABG PH 7.387 (7.35-7.45); ABG PO2 149.3 MM HG (80-95); ABG TCO2 27.6 MMOL/L (23-27); Glucose Heart Surgery 219 MG/DL (74-106); Hemoglobin Heart Surgery 9.5 G/DL (14.0-18.0); Potassium Heart/CVR 4.1 MMOL/L (3.5-5.1)
[2017-08-15] MEDS: ALBUMIN 5% 12.5 GM in PREMIX 1 EACH IV PRN ×2 (18:56→19:11)
[2017-08-15] MEDS: MORPHINE 4 MG/1 ML VIAL IV PRN (19:05)
[2017-08-15 19:34] LABS: ABG Base Excess 1.4 MMOL/L (-2.5-2.5); ABG HCO3 26.7 MMOL/L (20-26); ABG PCO2 45.5 MM HG (35-48); ABG PH 7.386 (7.35-7.45); ABG PO2 129.3 MM HG (80-95); ABG TCO2 28.1 MMOL/L (23-27); Glucose Heart Surgery 195 MG/DL (74-106); Potassium Heart/CVR 4.4 MMOL/L (3.5-5.1)
[2017-08-15] MEDS: PROPOFOL 1,000 MG/100 ML BOTTLE IV SCH (19:41)
[2017-08-15] MEDS ORDERED: FUROSEMIDE 40 MG/4 ML VIAL IV ONE (20:09)
[2017-08-16 00:27] LABS: ABG Base Excess 2.9 MMOL/L (-2.5-2.5); ABG Oxygen Saturation 99.3 % (95-100); ABG PCO2 43.6 MM HG (35-48); ABG PH 7.414 (7.35-7.45); ABG TCO2 24.8 MMOL/L (23-27); Glucose Heart Surgery 106 MG/DL (74-106); Hematocrit Heart Surgery 35.7 PERCENT (42-52); Hemoglobin Heart Surgery 11.6 G/DL (14.0-18.0); Potassium Heart/CVR 3.9 MMOL/L (3.5-5.1)
[2017-08-16 00:34] LABS: CKMB % 6.7 %
[2017-08-16] MEDS: POTASSIUM CHLORIDE RIDER 20 MEQ in PREMIX 1 EACH IV PRN ×3 (00:56→10:16)
[2017-08-16] MEDS: PHENYLEPHRINE DRIP 40 MG/250 ML PREMIX IV PRN ×4 (02:40→20:40)
[2017-08-16] MEDS: KETOROLAC 30 MG/1 ML VIAL IV SCH ×3 (03:23→16:26)
[2017-08-16] MEDS: FUROSEMIDE 40 MG/4 ML VIAL IV PRN (03:25)
[2017-08-16] MEDS: PROPOFOL 1,000 MG/100 ML BOTTLE IV SCH (03:40)
[2017-08-16] MEDS: ALBUMIN 5% 12.5 GM in PREMIX 1 EACH IV PRN ×8 (03:55→15:23)
[2017-08-16 04:03] LABS: ABG Base Excess 1.8 MMOL/L (-2.5-2.5); ABG Oxygen Saturation 99.1 % (95-100); ABG PCO2 42.4 MM HG (35-48); ABG PH 7.407 (7.35-7.45); ABG TCO2 23.8 MMOL/L (23-27); Glucose Heart Surgery 124 MG/DL (74-106); Hematocrit Heart Surgery 34.7 PERCENT (42-52); Hemoglobin Heart Surgery 11.2 G/DL (14.0-18.0); Potassium Heart/CVR 4.4 MMOL/L (3.5-5.1)
[2017-08-16 04:21] LABS: Basophils % 0.1 % (0.0-0.8); Hematocrit 28.2 VOL% (42.0-52.0); Hemoglobin 9.8 GM/DL (14.0-18.0); Immature Granulocytes % 0.6 %; Lymphocytes # 0.4 10*3/uL (1.4-4.0); Lymphocytes % 2.4 % (21.2-54.2); Mean Corpuscular HGB Conc 34.8 GM/DL (32-36); Mean Corpuscular Hemoglobin 30 PG (27-34); Mean Corpuscular Volume 84.9 FL (87-102); Mean Platelet Volume 10.2 FL (9.6-12.0); Monocytes # 0.9 10*3/uL (0.11-0.8); Monocytes % 5.6 % (1.7-12.7); Neutrophils # 14.2 10*3/uL (1.4-7.4); Neutrophils % 91.3 % (38.7-73.9); Platelet Count 161 T/CUMM (130-400); Red Blood Count 3.32 MC/CUMM (3.8-5.5); Red Cell Distribution Width 14.3 % (9.3-17.3); White Blood Count 15.6 T/CUMM (4-12)
[2017-08-16 04:29] LABS: Bilirubin,Direct 0.39 MG/DL (0.0-0.20); Bilirubin,Total 2.5 MG/DL (0.2-1.0); Calcium 8.4 MG/DL (8.5-10.1); Osmolality,Calculated 278.7 MOS/KG (273-304); Potassium 4.5 MMOL/L (3.5-5.1); Total Protein 4.8 G/DL (6.4-8.3)
[2017-08-16 05:45] LABS: Band Neutrophils 1 % (0-10); Hypochromasia 1+; Lymphocytes 2 % (20-55); Microcytosis Slight; Segmented Neutrophils 94 % (50-85); Total Cells Counted 100
[2017-08-16 05:46] LABS: Platelet Estimate Adequate
[2017-08-16] MEDS ORDERED: GLUCAGON 1 MG VIAL IM PRN (08:21)
[2017-08-16] MEDS ORDERED: DEXTROSE 50% 25 GM/50 ML VIAL IV PRN (08:21)
[2017-08-16] MEDS: FUROSEMIDE 40 MG/4 ML VIAL IV SCH (08:42)
[2017-08-16] MEDS ORDERED: amLODIPine 10 MG TABLET PO SCH (09:00)
[2017-08-16] MEDS ORDERED: CYANOCOBALAMIN 1000 MCG/1 ML VIAL IM SCH (09:00)
[2017-08-16] MEDS ORDERED: METOPROLOL TARTRATE 50 MG TABLET PO SCH (09:00)
[2017-08-16 10:10] LABS: ABG HCO3 24.1 MMOL/L (20-26); ABG Oxygen Saturation 98.2 % (95-100); ABG PCO2 37.2 MM HG (35-48); ABG PO2 138.5 MM HG (80-95); ABG TCO2 25.3 MMOL/L (23-27); Glucose Heart Surgery 143 MG/DL (74-106); Potassium Heart/CVR 4.1 MMOL/L (3.5-5.1)
[2017-08-16 10:33] LABS: CKMB % 5.5 %
[2017-08-16 10:34] LABS: Troponin I Only 8.14 NG/ML (0.00-0.045)
[2017-08-16] MEDS: MORPHINE 4 MG/1 ML VIAL IV PRN (10:54)
[2017-08-16] MEDS: SPIRONOLACTONE 25 MG TABLET PO SCH (11:36)
[2017-08-16] MEDS: sitaGLIPtin 100 MG TABLET PO SCH (11:37)
[2017-08-16] MEDS: ATORVASTATIN 20 MG TABLET PO SCH (11:37)
[2017-08-16] MEDS: ASPIRIN 325 MG TABLET PO SCH (11:37)
[2017-08-16] MEDS: CEFUROXIME INJ 1,500 MG in SODIUM CHLORIDE 0.9% 100 ML IV SCH ×2 (11:38)
[2017-08-16] MEDS: CHLORHEXIDINE 0.12% ORAL RINSE 60 ML BOTTLE SWISH/SPIT SCH ×2 (11:49→21:17)
[2017-08-16] MEDS: INSULIN REGULAR 100 UNIT/ML SUBCUT SCH ×3 (12:01→21:16)
[2017-08-16] MEDS: ALBUTEROL/IPRATROPIUM 3 ML NEB RESP TX SCH ×2 (13:06→19:06)
[2017-08-16 13:31] LABS: Hematocrit Heart Surgery 30.2 PERCENT (42-52); Hemoglobin Heart Surgery 9.8 G/DL (14.0-18.0); PCO2 Patient Temp Venous 42.6 MM HG; PH Patient Temp Venous 7.35; PO2 Patient Temp Venous 25.6 MM HG; Potassium Heart/CVR 4.6 MMOL/L (3.5-5.1); VBG HCO3 21.8 MEQ/L (24-28); VBG PCO2 42.6 MMHG (41-51); VBG PH 7.35; VBG PO2 25.6 MMHG (17-40)
[2017-08-16 14:16] LABS: ABG Base Excess -3.5 MMOL/L (-2.5-2.5); ABG HCO3 21.4 MMOL/L (20-26); ABG Oxygen Saturation 93.7 % (95-100); ABG PCO2 35.1 MM HG (35-48); ABG PH 7.384 (7.35-7.45); ABG PO2 68.9 MM HG (80-95); ABG TCO2 19.3 MMOL/L (23-27); Glucose Heart Surgery 233 MG/DL (74-106); Hemoglobin Heart Surgery 9.4 G/DL (14.0-18.0); Potassium Heart/CVR 4.6 MMOL/L (3.5-5.1)
[2017-08-16] MEDS ORDERED: CALCIUM GLUCONATE 1,000 MG in SODIUM CHLORIDE 0.9% 100 ML IV ONE (15:00)
[2017-08-16 17:07] LABS: CKMB % 4.8 %
[2017-08-16 17:12] LABS: Troponin I Only 9.35 NG/ML (0.00-0.045)
[2017-08-16] MEDS ORDERED: HEPARIN/NACL 0.9% 2 UNITS/ML 500 ML IV ONE (17:41)
[2017-08-16] MEDS: metFORMIN 500 MG TABLET PO SCH (18:35)
[2017-08-17] MEDS: ALBUTEROL/IPRATROPIUM 3 ML NEB RESP TX SCH ×4 (00:14→19:00)
[2017-08-17] MEDS: INSULIN REGULAR 100 UNIT/ML SUBCUT SCH ×6 (00:27→19:54)
[2017-08-17] MEDS: PHENYLEPHRINE DRIP 40 MG/250 ML PREMIX IV PRN (00:32)
[2017-08-17] MEDS: CEFUROXIME INJ 1,500 MG in SODIUM CHLORIDE 0.9% 100 ML IV SCH (00:35)
[2017-08-17 05:17] LABS: Basophils % 0.1 % (0.0-0.8); Hematocrit 30.2 VOL% (42.0-52.0); Hemoglobin 10.1 GM/DL (14.0-18.0); Immature Granulocytes % 1.2 %; Immature Granulocytes Absolute 0.21 #; Lymphocytes # 0.5 10*3/uL (1.4-4.0); Lymphocytes % 2.9 % (21.2-54.2); Mean Corpuscular HGB Conc 33.4 GM/DL (32-36); Mean Corpuscular Hemoglobin 30 PG (27-34); Mean Corpuscular Volume 88.6 FL (87-102); Mean Platelet Volume 10.7 FL (9.6-12.0); Monocytes # 1.8 10*3/uL (0.11-0.8); Monocytes % 9.9 % (1.7-12.7); Neutrophils # 15.1 10*3/uL (1.4-7.4); Neutrophils % 85.9 % (38.7-73.9); Platelet Count 113 T/CUMM (130-400); Red Blood Count 3.41 MC/CUMM (3.8-5.5); Red Cell Distribution Width 14.6 % (9.3-17.3); White Blood Count 17.6 T/CUMM (4-12)
[2017-08-17 05:44] LABS: Band Neutrophils 4 % (0-10); Burr Cells Few; Lymphocytes 2 % (20-55); Platelet Estimate Decreased; Segmented Neutrophils 87 % (50-85); Total Cells Counted 100
[2017-08-17 05:58] LABS: Albumin 4.2 G/DL (3.4-5.0); Bilirubin,Direct 0.92 MG/DL (0.0-0.20); Bilirubin,Total 2.5 MG/DL (0.2-1.0); Calcium 8.2 MG/DL (8.5-10.1); Potassium 4.9 MMOL/L (3.5-5.1); Total Protein 5.6 G/DL (6.4-8.3)
[2017-08-17] MEDS: SODIUM CHLORIDE 0.45% 1,000 ML IV SCH ×2 (06:58→08:53)
[2017-08-17] MEDS: MORPHINE 4 MG/1 ML VIAL IV PRN (07:48)
[2017-08-17] MEDS ORDERED: FUROSEMIDE 40 MG/4 ML VIAL IV ONE ×3 (07:54→18:28)
[2017-08-17] MEDS: PIOGLITAZONE 15 MG TABLET PO SCH (08:10)
[2017-08-17] MEDS: sitaGLIPtin 100 MG TABLET PO SCH (08:10)
[2017-08-17] MEDS: glipiZIDE 5 MG TABLET PO SCH (08:11)
[2017-08-17] MEDS: ATORVASTATIN 20 MG TABLET PO SCH (08:11)
[2017-08-17] MEDS: SPIRONOLACTONE 25 MG TABLET PO SCH (08:11)
[2017-08-17] MEDS: metFORMIN 500 MG TABLET PO SCH ×2 (08:13→16:44)
[2017-08-17] MEDS: ASPIRIN 325 MG TABLET PO SCH (08:13)
[2017-08-17] MEDS: FUROSEMIDE 40 MG/4 ML VIAL IV PRN (08:15)
[2017-08-17] MEDS: CHLORHEXIDINE 0.12% ORAL RINSE 60 ML BOTTLE SWISH/SPIT SCH ×2 (08:24→21:42)
[2017-08-17] MEDS ORDERED: HEPARIN/NACL 0.9% 2 UNITS/ML 500 ML IV ONE (09:16)
[2017-08-17] MEDS: ALBUMIN 5% 12.5 GM in PREMIX 1 EACH IV PRN ×3 (13:00→16:23)
[2017-08-18] MEDS: INSULIN REGULAR 100 UNIT/ML SUBCUT SCH ×7 (00:03→23:47)
[2017-08-18] MEDS: ALBUTEROL/IPRATROPIUM 3 ML NEB RESP TX SCH ×4 (01:19→20:06)
[2017-08-18] MEDS ORDERED: FUROSEMIDE 40 MG/4 ML VIAL IV ONE ×2 (02:00→20:07)
[2017-08-18 05:30] LABS: Basophils % 0.1 % (0.0-0.8); Hematocrit 25.4 VOL% (42.0-52.0); Hemoglobin 8.4 GM/DL (14.0-18.0); Immature Granulocytes % 1.3 %; Immature Granulocytes Absolute 0.14 #; Lymphocytes # 0.6 10*3/uL (1.4-4.0); Lymphocytes % 5.7 % (21.2-54.2); Mean Corpuscular HGB Conc 33.1 GM/DL (32-36); Mean Corpuscular Hemoglobin 30 PG (27-34); Mean Corpuscular Volume 89.8 FL (87-102); Mean Platelet Volume 10.7 FL (9.6-12.0); Monocytes % 9.3 % (1.7-12.7); Neutrophils % 83.6 % (38.7-73.9); Platelet Count 66 T/CUMM (130-400); Red Blood Count 2.83 MC/CUMM (3.8-5.5); Red Cell Distribution Width 14.7 % (9.3-17.3); White Blood Count 10.8 T/CUMM (4-12)
[2017-08-18 05:56] LABS: Albumin 3.9 G/DL (3.4-5.0); Bilirubin,Direct 0.57 MG/DL (0.0-0.20); Bilirubin,Total 1.5 MG/DL (0.2-1.0); Calcium 8.2 MG/DL (8.5-10.1); Osmolality,Calculated 291.8 MOS/KG (273-304); Potassium 4.5 MMOL/L (3.5-5.1); Total Protein 5.1 G/DL (6.4-8.3)
[2017-08-18 05:58] LABS: Band Neutrophils 1 % (0-10); Lymphocytes 4 % (20-55); Segmented Neutrophils 89 % (50-85); Total Cells Counted 100
[2017-08-18 05:59] LABS: Microcytosis 1+; Platelet Estimate Decreased
[2017-08-18] MEDS: SODIUM CHLORIDE 0.45% 1,000 ML IV SCH ×3 (06:25→23:53)
[2017-08-18] MEDS: DOBUTamine 500 MG/250 ML PREMIX IV SCH ×2 (07:11→07:12)
[2017-08-18] MEDS ORDERED: AMIODARONE INJ 150 MG in DEXTROSE 5% 100 ML IV STA (08:09)
[2017-08-18] MEDS ORDERED: AMIODARONE 150 MG/3 ML VIAL ONE (08:13)
[2017-08-18] MEDS: glipiZIDE 5 MG TABLET PO SCH (08:22)
[2017-08-18] MEDS: metFORMIN 500 MG TABLET PO SCH ×2 (08:22→17:34)
[2017-08-18] MEDS: ASPIRIN 325 MG TABLET PO SCH (08:42)
[2017-08-18] MEDS: PIOGLITAZONE 15 MG TABLET PO SCH (08:42)
[2017-08-18] MEDS: sitaGLIPtin 100 MG TABLET PO SCH (08:42)
[2017-08-18] MEDS: SPIRONOLACTONE 25 MG TABLET PO SCH (08:42)
[2017-08-18] MEDS: CHLORHEXIDINE 0.12% ORAL RINSE 60 ML BOTTLE SWISH/SPIT SCH ×2 (08:43→21:22)
[2017-08-18] MEDS ORDERED: AMIODARONE INJ 450 MG in DEXTROSE 5% 241 ML IV SCH (09:00)
[2017-08-18] MEDS ORDERED: METOPROLOL TARTRATE 25 MG TABLET PO SCH (09:30)
[2017-08-18] MEDS: ALBUMIN 5% 12.5 GM in PREMIX 1 EACH IV PRN ×3 (09:50→12:13)
[2017-08-18] MEDS: PHENYLEPHRINE DRIP 40 MG/250 ML PREMIX IV PRN (10:48)
[2017-08-18] MEDS: DEXTROMETHORPHAN ER 6 MG/ML 90 ML/BOTTLE PO PRN (12:54)
[2017-08-18 15:56] LABS: ABG Base Excess -10.9 MMOL/L (-2.5-2.5); ABG HCO3 14.8 MMOL/L (20-26); ABG Oxygen Saturation 22.5 % (95-100); ABG PCO2 50.8 MM HG (35-48); ABG TCO2 17.2 MMOL/L (23-27); Glucose Heart Surgery 198 MG/DL (74-106); Hematocrit Heart Surgery 29.8 PERCENT (42-52); Hemoglobin Heart Surgery 9.6 G/DL (14.0-18.0); Potassium Heart/CVR 4.8 MMOL/L (3.5-5.1)
[2017-08-18 16:01] LABS: ABG PH 7.155 (7.35-7.45); ABG PO2 24.7 MM HG (80-95)
[2017-08-18] MEDS: AMIODARONE INJ 450 MG in DEXTROSE 5% 241 ML IV SCH (17:08)
[2017-08-18 17:49] LABS: ABG Base Excess -10.8 MMOL/L (-2.5-2.5); ABG HCO3 15.9 MMOL/L (20-26); ABG Oxygen Saturation 99.8 % (95-100); ABG PCO2 28.4 MM HG (35-48); ABG PH 7.313 (7.35-7.45); ABG TCO2 13.4 MMOL/L (23-27)
[2017-08-18] MEDS ORDERED: SODIUM BICARBONATE 50 MEQ/50 ML SYRINGE IV ONE (19:04)
[2017-08-18] MEDS ORDERED: SODIUM CHLORIDE 0.9% 1,000 ML IV PRN (20:03)
[2017-08-19] MEDS ORDERED: METOCLOPRAMIDE 10 MG/2 ML VIAL IV ONE ×3 (00:33→06:00)
[2017-08-19] MEDS: ALBUTEROL/IPRATROPIUM 3 ML NEB RESP TX SCH ×2 (00:47→08:30)
[2017-08-19] MEDS: DEXTROMETHORPHAN ER 6 MG/ML 90 ML/BOTTLE PO PRN (02:33)
[2017-08-19] MEDS: MORPHINE 4 MG/1 ML VIAL IV PRN (03:06)
[2017-08-19 03:38] LABS: ABG Base Excess -8.4 MMOL/L (-2.5-2.5); ABG HCO3 16.3 MMOL/L (20-26); ABG Oxygen Saturation 98.2 % (95-100); ABG PCO2 30.6 MM HG (35-48); ABG PH 7.343 (7.35-7.45); ABG PO2 148.4 MM HG (80-95); ABG TCO2 17.2 MMOL/L (23-27); Allen Test Positive; Pt O2 Delivery Device Other
[2017-08-19] MEDS: INSULIN REGULAR 100 UNIT/ML SUBCUT SCH ×2 (04:06→09:02)
[2017-08-19 04:59] LABS: Basophils % 0.3 % (0.0-0.8); Hematocrit 29.5 VOL% (42.0-52.0); Hemoglobin 9.5 GM/DL (14.0-18.0); Immature Granulocytes % 3.9 %; Immature Granulocytes Absolute 0.54 #; Lymphocytes # 0.6 10*3/uL (1.4-4.0); Lymphocytes % 4.2 % (21.2-54.2); Mean Corpuscular HGB Conc 32.2 GM/DL (32-36); Mean Corpuscular Hemoglobin 29 PG (27-34); Mean Corpuscular Volume 91.3 FL (87-102); Mean Platelet Volume 11.6 FL (9.6-12.0); Monocytes # 1.3 10*3/uL (0.11-0.8); Monocytes % 9.4 % (1.7-12.7); NRBC # 0.02 10*3/uL; Neutrophils # 11.5 10*3/uL (1.4-7.4); Neutrophils % 82.2 % (38.7-73.9); Platelet Count 45 T/CUMM (130-400); Red Blood Count 3.23 MC/CUMM (3.8-5.5); Red Cell Distribution Width 14.7 % (9.3-17.3)
[2017-08-19 05:22] LABS: Band Neutrophils 6 % (0-10); Burr Cells Few; Lymphocytes 2 % (20-55); Platelet Estimate Decreased; Segmented Neutrophils 86 % (50-85); Total Cells Counted 100
[2017-08-19 05:23] LABS: CKMB % 1.3 %
[2017-08-19 05:27] LABS: Troponin I Only 10.2 NG/ML (0.00-0.045)
[2017-08-19 05:35] LABS: Albumin 3.7 G/DL (3.4-5.0); Bilirubin,Total 3.1 MG/DL (0.2-1.0); Calcium 8.4 MG/DL (8.5-10.1); Potassium 5.2 MMOL/L (3.5-5.1); Total Protein 5.3 G/DL (6.4-8.3)
[2017-08-19] MEDS: AMIODARONE INJ 450 MG in DEXTROSE 5% 241 ML IV SCH (05:50)
[2017-08-19] MEDS ORDERED: FUROSEMIDE 40 MG/4 ML VIAL IV ONE (06:37)
[2017-08-19] MEDS: DOBUTamine 500 MG/250 ML PREMIX IV SCH (07:25)
[2017-08-19 08:35] LABS: INR 1.7; PT Patient Result 17.7 SECS; Partial Thromboplastin Time 34.9 SECS (0-40)
[2017-08-19 08:50] LABS: Lactic Acid 3.4 MMOL/L (0.4-2.0)
[2017-08-19] MEDS: glipiZIDE 5 MG TABLET PO SCH (08:58)
[2017-08-19] MEDS: sitaGLIPtin 100 MG TABLET PO SCH (09:02)
[2017-08-19] MEDS: ASPIRIN 325 MG TABLET PO SCH (09:02)
[2017-08-19] MEDS ORDERED: BISACODYL 10 MG SUPP RECTAL ONE (09:03)
[2017-08-19] MEDS ORDERED: SODIUM BICARBONATE 50 MEQ/50 ML SYRINGE IV ONE ×2 (09:05→10:23)
[2017-08-19] MEDS: PHENYLEPHRINE DRIP 40 MG/250 ML PREMIX IV PRN (09:17)
[2017-08-19] MEDS ORDERED: ENOXAPARIN 60 MG/0.6 ML SYRINGE SUBCUT SCH (09:30)
[2017-08-19] MEDS: CHLORHEXIDINE 0.12% ORAL RINSE 60 ML BOTTLE SWISH/SPIT SCH (09:38)
[2017-08-19 12:53] LABS: Lactic Acid 13.7 MMOL/L (0.4-2.0)
[2017-08-19 13:38] VITALS: BP 110/84
== END 2017-08-19 12:30 | disposition expired | DRG 233 ==
LOC: N.ED 23:23 → N.EDINP 08-09 01:57 → N.5E 08-09 02:20 → N.2E 08-09 02:21 → N.ICU 08-09 19:52 → N.TELEN 08-14 13:35 → N.CVR 08-15 12:05 → N.ICU 08-17 09:42
PROVIDERS: ADMIT Family Medicine; ATTEND Family Medicine